=== PATIENT | male | born 1985 | race Caucasian/White ===

== ENCOUNTER 2018-01-12 10:06 | Emergency (ER) | payer OTHER, MEDICAID ==
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
[2018-01-12 11:04] VITALS: BP 156/74
== END 2018-01-12 11:04 | disposition home or self-care (01) ==
LOC: CED 10:06
DX: S06.0X0A Concussion without loss of consciousness, initial encounter (principal); S39.012A Strain of muscle, fascia and tendon of lower back, initial encounter; S60.221A Contusion of right hand, initial encounter; V69.60XA Unspecified occupant of heavy transport vehicle injured in collision with unspecified motor vehicles in traffic accident, initial encounter; Y92.411 Interstate highway as the place of occurrence of the external cause
CPT/HCPCS: 73130-PO